=== PATIENT | male | born 1960 | race Caucasian/White ===

== ENCOUNTER → 2020-01-21 09:02 | Outpatient (CLI) | payer OTHER, SELFPAY ==
--- NOTE | ~2020-01-21 | XR_ITS ---
EXAMINATION: XR lumbar spine 2-3V DATE: 01/21/2020 09:40 INDICATION: Left-sided low back pain. Left hip pain. TECHNIQUE: 3 views of lumbar spine were obtained. COMPARISON: None. FINDINGS: Bone alignment is normal. Vertebral body heights are normal. There is mildly decreased disc height at L3-L4 and moderately decreased disc height at L5-S1. There are endplate osteophytes at all levels. There is multilevel facet joint osteoarthritis, moderate to severe in lower lumbar spine. IMPRESSION: 1. Moderate lumbar spondylosis. Reviewed, dictated and finalized at location B.
--- NOTE | ~2020-01-21 | XR_ITS ---
EXAMINATION: XR hip LT min 2V DATE: 01/21/2020 09:39 INDICATION: Left hip pain. TECHNIQUE: 2 views of left hip were obtained. COMPARISON: None. FINDINGS: Bone alignment is normal. No fracture. Left hip joint space is normal. IMPRESSION: 1. Normal left hip. Reviewed, dictated and finalized at location B. IMPRESSION: 1. Normal left hip.
== END ==
PROVIDERS: PCP Internal Medicine; Visit Provider Internal Medicine
DX: M47.896 Other spondylosis, lumbar region (principal)
CPT/HCPCS: 72100; 73502

== ENCOUNTER → 2020-07-01 09:00 | Outpatient (CLI) | payer OTHER, SELFPAY ==
--- NOTE | ~2020-07-01 | US_ITS ---
US right upper quadrant DATE: 07/01/2020 09:36 INDICATION: Abnormal liver function tests TECHNIQUE: Real-time imaging and Doppler analysis of liver, pancreas, gallbladder areas COMPARISON: None FINDINGS: No hepatic or pancreatic space-occupying mass lesion is evident. Normal hepatopedal portal venous flow direction. No gallstones or gallbladder wall thickening or pericholecystic abnormal fluid collection. Negative sonographic Juarez's sign. The common bile duct measures 4.6 mm, normal. IMPRESSION: Negative examination Reviewed, dictated and finalized at [facility]. Reviewed, dictated and finalized at location A. [employer] IMPRESSION: Negative examination
== END ==
PROVIDERS: PCP Internal Medicine; Visit Provider Internal Medicine
DX: R94.5 Abnormal results of liver function studies (principal)
CPT/HCPCS: 76705

== ENCOUNTER 2021-12-14 08:23 | Emergency (ER) | payer OTHER, SELFPAY ==
--- NOTE | ~2021-12-14 | CT_ITS ---
EXAMINATION: CT soft tissue neck w con DATE: 12/14/2021 10:57 INDICATION: Left neck swelling. Dental abscess. TECHNIQUE: Computed tomography (CT) of the neck was performed with 75 mL Omnipaque-300 intravenous co ntrast. Automated exposure control and iterative reconstruction technique were employed. The dose-papo gth product was 560.40 mGy-cm. COMPARISON: None FINDINGS: Thyroid gland is unremarkable. Bilateral parotid glands are symmetric. There is asymmetric enlargemen t of the left submandibular gland relative to the right. Mildly enlarged level 2 left jugular chain l ymph node measuring 11 mm in maximal short axis diameter. There are few additional asymmetric enlarge ment stable normal sized left-sided jugular chain and submandibular lymph nodes which are likely reac tive. There is asymmetric enlargement/swelling of the musculature at the left side of the base of the tongue and at the left lateral side of the oropharynx region of the lingual tonsil. There is dental disease with multiple dental restorations and a few absent teeth. Periapical lucencies associated ite rative the left maxillary first molar and the remaining otherwise absent right first molar. No periap ical erosions along the mandible. No abscesses identified. No masses identified. Atherosclerotic calc ification is at the bilateral carotid bulbs with no hemodynamically significant stenosis. Vertebral a rteries are codominant. Airway is unremarkable. Moderate cervical spondylosis. Orbits are unremarkab le. Superior mediastinum is unremarkable. Visualized sinuses and mastoid air cells are well aerated. Lung apices are normal. IMPRESSION: 1. Asymmetric enlargement of the left submandibular gland suspicious for sialoadenitis. 2. Asymmetric enlargement of the left side of the musculature at the base of the tongue soft tissue s welling at the left side of the oropharynx in the region of the lingual tonsil also raising the possi bility of tonsillitis. No abscess. 3. Likely reactive left submandibular and jugular chain lymphadenopathy. 4. Dental disease with a couple periapical erosions along the first molars of the left and right side of the maxilla. Reviewed, dictated and finalized at location A. IMPRESSION: 1. Asymmetric enlargement of the left submandibular gland suspicious for sialoa denitis. 2. Asymmetric enlargement of the left side of the musculature at the base of th e tongue soft tissue swelling at the left side of the oropharynx in the region of the lingual tonsil also raising the possibility of tonsillitis. No abscess. 3. Likely reactive left submandibular and jugular chain lymphadenopathy. 4. Dental disease with a couple periapical erosions along the first molars of t he left and right side of the maxilla.
[2021-12-14 08:27] VITALS: BP 175/106; PULSE 102; RESP 16; TEMP 36.9; O2SAT 100
[2021-12-14] MEDS: KETOROLAC 30 MG/ML VIAL (*BKC) IV PUSH (09:05)
[2021-12-14] MEDS: ONDANSETRON INJ 4 MG/2 ML VIAL IV PUSH (09:06)
[2021-12-14 09:22] LABS: Basophils Absolute Auto 0.1 K/mm3 (0.0-0.1); Basophils Percent Auto 0.6 % (0.2-1.2); Eosinophils Absolute Auto 0.1 K/mm3 (0-0.3); Eosinophils Percent Auto 0.7 % (0-4.4); Hematocrit 38.1 % (42.0-52.0); Hemoglobin 13.6 g/dL (14.0-18.0); Immature Granulocyte Absolute 0.03 K/mm3 (0.00-0.031); Immature Granulocyte Percent A 0.3 % (0-0.5); Lymphocytes Absolute Auto 1.65 K/mm3 (0.9-3.2); Lymphocytes Percent Auto 18.8 % (18.3-44.2); Mean Corpuscular HGB Conc 35.7 g/dl (32-36); Mean Corpuscular Hemoglobin 33.6 pg (26-34); Mean Corpuscular Volume 94.1 fl (80-100); Mean Platelet Volume 11.5 fl (7.4-10.4); Monocytes Absolute Auto 1.4 K/mm3 (0.1-0.6); Monocytes Percent Auto 15.7 % (2.6-8.5); Neutrophils Absolute Auto 5.6 K/mm3 (1.3-6.7); Neutrophils Percent Auto 63.9 % (45.5-73.1); Platelet Count Result 211 k/mm3 (150-375); Red Blood Count 4.05 M/mm3 (4.6-6.20); Red Cell Distribution Width 12.4 % (11.5-14.5); White Blood Count 8.8 K/mm3 (4.5-10.0)
[2021-12-14 09:32] LABS: Alanine Aminotransferase 68 U/L (6-50); Albumin Level 4.9 g/dL (3.5-5.1); Alkaline Phosphatase 74 U/L (38-126); Anion Gap 11 mmol/L (8-16); Aspartate Amino Transferase 39 U/L (17-59); Blood Urea Nitrogen 18 mg/dL (9-20); Calcium 9.7 mg/dL (8.4-10.2); Carbon Dioxide 26 mmol/L (22-30); Chloride 99 mmol/L (98-107); Estimated CRCL calculation 75 ml/min; Estimated Glomerular Filt Rate > 60; Glucose 105 mg/dL (65-110); Potassium 4.3 mmol/L (3.4-5.0); Sodium 136 mmol/L (137-145)
[2021-12-14 09:36] LABS: INR 1.1; Prothrombin Time 13.3 Seconds (11.1-14.7)
[2021-12-14 09:52] VITALS: BP 133/87; PULSE 79; RESP 16; O2SAT 99
[2021-12-14] MEDS: CLINDAMYCIN 600 MG/D5W 50 ML 600 MG/50 ML PIGGYBACK 100 MG IVPB (10:40)
--- NOTE | 2021-12-14 12:04 | ED.DENTAL ---
HPI - Dental/Oral General Chief complaint: Dental/Oral Stated complaint: Facial Swelling after Tooth Removal Time Seen by Provider: 12/14/21 08:26 Source: patient and RN notes reviewed Mode of arrival: ambulatory Limitations: no limitations History of Present Illness HPI Narrative: This is 61 year old male who presents for evaluation left jaw swelling. Patient states 1 week ago he had a tooth extracted from his lower left molar. He notices swelling to left jaw on Saturday. He was seen by his dentist on Saturday and he was seen at [place] [facility]. He was started on Clindamycin and pain medication on Saturday. He has had improvement of his swelling since he started the medication. He reports he is still having pain and swelling so he came to ER. He took his last hydrocodone today. He reports pain with eating and swallowing. He denies shortness of breath, fever, chills, nausea and vomiting. He also reports difficulty opening his mouth. Related Data Home Medications Medication Instructions Recorded Confirmed clindamycin HCl 300 mg capsule mg 12/14/21 lisinopril 40 mg tablet mg 12/14/21 metoprolol succinate 25 mg mg PO 12/14/21 tablet,extended release 24 hr Allergies Allergy/AdvReac Type Severity Reaction Status Date / Time No Known Allergies Allergy Verified 12/14/21 08:32 Review of Systems Review of Systems: All systems reviewed & are unremarkable except as noted in HPI and below Constitutional: Constitutional: Denies chills, Denies fatigue and Denies fever(s) ENT: Denies nasal congestion and Denies sore throat Cardiovascular: Cardiovascular: Denies chest pain Respiratory: Respiratory: Denies chest congestion and Denies cough Gastrointestinal: Gastrointestinal: Denies abdominal pain, Denies nausea and Denies vomiting PMFSH Past Medical History Medical History (Updated 12/14/21 @ 12:13 by Minna Isabel MD) Hypertension Surgical History Surgical History (Updated 12/14/21 @ 12:10 by Minna Isabel MD) H/O tooth extraction Social History Social History (Updated 12/14/21 @ 12:10 by Minna Isabel MD) Smoking packs per day: 1 Smoking cigarettes per day: 20.0 Smoking status: Current every day smoker Exam Const: General: alert Nutritional Appearance: well nourished Orientation/consciousness: patient oriented x3 Limitations: no limitations HENMT: Ears: TM's normal bilaterally General nose exam: Normal external nose present Mouth: Yes Normal oral and palatal mucosa present, Yes lip normal and Yes moist mucous membranes Teeth and gingiva: abnormal tooth and associated gingiva Throat: posterior oropharynx normal and uvula midline Other: firm area to left submandible. floor of mouth soft, no tenderness, Eyes: Pupils: Equal, round and reactive pupils present EOM: EOMs intact bilaterally Neck: Neck: lymphadenopathy Resp: Effort & Inspection: normal respiratory effort Auscultation: clear to auscultation bilaterally Cardio: Rate: regular rate Rhythm: regular rhythm GI: GI Palp: Yes Soft to palpation, No Tenderness to palpation present (GI) and No Guarding due to palpation present (GI) Skin: General skin exam: normal color Rashes: no rashes Neuro: General: patient oriented x3, moves all extremities and CN's II-XI intact bilaterally Extrem: General: normal to inspection Psych: Mental Status: mental status grossly normal Course Reevaluation(s) Reevaluation #1: I discussed with patient that CT does not show abscess. It does show sialodenitis. He will continue his antibiotics. Date: 12/14/21 Time: 12:06 Vital Signs Vital signs: Vital Signs Temperature 98.4 F 12/14/21 08:27 Pulse Rate 102 H 12/14/21 08:27 Respiratory Rate 16 12/14/21 08:27 Blood Pressure 175/106 H 12/14/21 08:27 Pulse Oximetry 100 12/14/21 08:27 Oxygen Delivery Room Air 12/14/21 08:27 Temperature 98.5 F 12/14/21 12:25 Pulse Rate 79 12/14/21 09:52 Re
[2021-12-14 12:25] VITALS: TEMP 36.9
== END 2021-12-14 12:29 | disposition home or self-care (01) ==
PROVIDERS: Emergency Provider General Practice; PCP Internal Medicine
DX: K11.20 Sialoadenitis, unspecified (principal); J03.90 Acute tonsillitis, unspecified; R59.9 Enlarged lymph nodes, unspecified; I10 Essential (primary) hypertension; F17.210 Nicotine dependence, cigarettes, uncomplicated
CPT/HCPCS: 36415; 70491; 80053; 85025; 85610; 85730; 96365; 96375; 99284; J1885; J2405; Q9967

== ENCOUNTER 2022-01-07 09:33 | Outpatient (CLI) | payer OTHER, SELFPAY ==
--- NOTE | ~2022-01-07 | CT_ITS ---
EXAMINATION: CT soft tissue neck w con DATE: 01/07/2022 11:01 INDICATION: Left submandibular odontogenic abscess. TECHNIQUE: Computed tomography (CT) of the neck was performed with 75 mL Omnipaque-350 intravenous co ntrast. Automated exposure control and iterative reconstruction technique were employed. The dose-papo gth product was 573.96 mGy-cm. COMPARISON: Neck CT 12/14/2021 FINDINGS: There is mild emphysema. There is plaque in the proximal internal carotid arteries with 0% stenosis relative to normal distal artery lumen diameters. There is a skin marker overlying the left submandibular gland. There is asymmetric enlargement of left submandibular gland with improved associ ated fat stranding. There are no pathologically enlarged lymph nodes. There is mild mucosal thickenin g in the paranasal sinuses. There is moderate cervical spondylosis. There are many restorations of th e teeth with associated artifact. Tooth 16 is unerupted with a lytic lesion around the crown, consis tent with an odontogenic keratocyst. IMPRESSION: 1. Persistent asymmetric enlargement of left submandibular gland with improved associated fat strandi ng, likely sialadenitis. No sialolith. Reviewed, dictated and finalized at location A. IMPRESSION: 1. Persistent asymmetric enlargement of left submandibular gland with improved associated fat stranding, likely sialadenitis. No sialolith.
== END 2022-01-07 09:34 | disposition home or self-care (01) ==
LOC: ANHIMG 09:36
PROVIDERS: PCP Internal Medicine; Visit Provider Otolaryngology
DX: L02.11 Cutaneous abscess of neck (principal)
CPT/HCPCS: 70491; Q9967